=== PATIENT | male | born 1965 | race Caucasian/White ===

== ENCOUNTER 2022-07-16 07:56 | Outpatient (CLI) | payer BC, SELFPAY ==
[2022-07-16 14:06] LABS: Albumin* 4.5 g/dL (3.3-5.0); Chloride* 101 mmol/L (96-114)
[2022-07-16 14:07] LABS: Potassium* 4.8 mmol/L (3.6-5.1); Sodium* 140 mmol/L (135-149)
[2022-07-16 14:09] LABS: Carbon Dioxide* 29 mmol/L (20-32); Cholesterol* 142 mg/dL (90-199); Estimated Glomerular Filt Rate 87 ml/min
[2022-07-16 14:10] LABS: Alanine Aminotransferase* 40 U/L (4-50); Alkaline Phosphatase* 67 U/L (40-150); Aspartate Amino Transferase* 45 U/L (12-35); Blood Urea Nitrogen* 23 mg/dL (7-30); Calcium* 9.3 mg/dL (8.4-10.6); Glucose* 96 mg/dL (60-115); HDL Cholesterol* 46 mg/dL (>=40); LDL Cholesterol Calculated 85 mg/dL (<100); Total Protein* 6.8 g/dL (6.0-8.3); Triglycerides* 55 mg/dL (40-149)
[2022-07-16 14:27] LABS: Creatinine Urine 176.3 mg/dL
[2022-07-16 14:35] LABS: Microalbumin Creatinine Ratio 0 mg/g (0-30); Microalbumin Urine < 1 mg/dL
== END 2022-07-16 07:57 | disposition home or self-care (01) ==
PROVIDERS: PCP Family Medicine; Visit Provider Family Medicine
DX: Z00.00 Encounter for general adult medical examination without abnormal findings (principal); E78.5 Hyperlipidemia, unspecified; I10 Essential (primary) hypertension
CPT/HCPCS: 80053; 80061; 82043; 82570

== ENCOUNTER 2023-08-02 08:39 | Outpatient (CLI) | payer BC, SELFPAY | END 2023-08-02 08:40 | disposition home or self-care (01) | PROVIDERS: PCP Family Medicine; Visit Provider Family Medicine | DX: Z00.00 Encounter for general adult medical examination without abnormal findings (principal); E78.5 Hyperlipidemia, unspecified; I10 Essential (primary) hypertension; Z12.5 Encounter for screening for malignant neoplasm of prostate | CPT/HCPCS: 80053; 80061; 82043; 82570; 84153 ==